=== PATIENT | female | born 1995 | race Caucasian/White ===

== ENCOUNTER 2017-01-03 02:17 | Emergency (ER) | payer SELFPAY ==
[~2017-01-03] VITALS: Ht 162.6 cm; Wt 52.0 kg
[2017-01-03 02:25] VITALS: BP 123/68; PULSE 85; RESP 16; TEMP 98.7; O2SAT 100
[2017-01-03] MEDS ORDERED: LORazepam 2 MG/ML VIAL ONE (02:49)
--- NOTE | 2017-01-03 03:05 | PD ---
HPI Chief Complaint: Seizure Time Seen by Provider: 02:26 Travel History International Travel<30 days: No Contact w/Intl Traveler<30days: No Traveled to known affect area: No History of Present Illness HPI Patient is a 21 year old female who is brought in by EMS possible staring seizure at home called 911. He reports that she has had tonic seizures in [facility] but tonight was a more of a staring episode and that she did not respond when he called her repeatedly.. Patient is awake and alert when I talked to her . Pt is staring but answering questions about her antiseizure meds, and that they were stopped in February and that she has had EEG that were unremarkable .. having had a normal EEG. She looks staring but no tonic-clonic activity,she does not lack comprehension as I speak to her , she responds slowly but appropriately, her vitals are normal heart rate is 90 BPM blood pressure is 123/60. No sign of active seizing. is in route to Hospital .. PFSH Past Medical History Diminished Hearing: No Seizures: Yes Tetanus Vaccination: > 5 Years ?: Not Past Surgical History Surgical History: No Previous Surgery Section: Yes (ONE) Social History Alcohol Use: No Tobacco Use: No Substance Use: No Allergies-Medications (Allergen,Severity, Reaction): Coded Allergies: No Known Allergies (Verified Allergy, Unknown, 01/03/17) Reported Meds & Prescriptions Reported Meds & Active Scripts Active Ativan (Lorazepam) 0.5 Mg Tab 0.5 Mg PO Q6H PRN Calcium 600+D Plus Minerals (Calcium Carbonate-Vitamin D W/Minerals) 600-400 Mg- Unit Tab 1 Tab PO BID 30 Days Review of Systems ROS Limitations: Other: (slow mentation but not postictal , answer history questions but not able to provide details of current night s event) Except as stated in HPI: all other systems reviewed are Neg Physical Exam Narrative GENERAL: Awake alert but staring answering slowly SKIN: Warm and dry. HEAD: Atraumatic. Normocephalic. EYES: Pupils equal and round. No scleral icterus. No injection or drainage. ENT: No nasal bleeding or discharge. Mucous membranes pink and moist. NECK: Trachea midline. No JVD. CARDIOVASCULAR: Regular rate and rhythm. BP 123/60 heart rate 90 RESPIRATORY: No accessory muscle use. Clear to auscultation. Breath sounds equal bilaterally. GASTROINTESTINAL: Abdomen soft, non-tender, nondistended. Hepatic and splenic margins not palpable. MUSCULOSKELETAL: Extremities without clubbing, cyanosis, or edema. No obvious deformities. NEUROLOGICAL: Awake and alert. No obvious focal deficits. No signs of postictal phase PSYCHIATRIC: Staring ahead however she is awake and alert and responding appropriately Patient is staring but answers my questions when I first come into the room there is no tonic-clonic activity her blood pressure is 123/60 heart rate 90 RE_EXAM pt now fully alert . beside. Calcium was 6.9 ,, I felt with risk of seizure IV replacement indicated CaGluc 1 gram over 1 hr given with close to normilization 8.1 safe for discharge with PO calcium replacment Data Data Last Documented VS Vital Signs Date Time Temp Pulse Resp B/P (MAP) Pulse Ox O2 Delivery O2 Flow Rate FiO2 01/03/17 07:18 97.8 78 16 120/76 (91) 99 01/03/17 05:10 Room Air Orders Orders Complete Blood Count With Diff (01/03/17 02:43) Comprehensive Metabolic Panel (01/03/17 02:43) Creatine Kinase (Cpk) (01/03/17 02:43) Lorazepam Inj (Ativan Inj) (01/03/17 02:49) Calcium Gluconate Inj (Calcium Gluconate (01/03/17 04:15) Magnesium (Mg) (01/03/17 05:32) Phosphorus (Po4) (01/03/17 05:32) Comprehensive Metabolic Panel (01/03/17 06:29) Ed Discharge Order (01/03/17 07:05) Electrocardiogram (01/03/17 02:36) Labs Laboratory Tests Test 01/03/17 02:50 01/03/17 06:31 White Blood Count 8.8 TH/MM3 Red Blood Count 4.21 MIL/MM3 Hemoglobin 11.7 GM/DL Hematocrit 34.7 % Mean Corpuscular Volume 82.5 FL Mean Corpuscular Hemoglobin 27.8 PG Mean Corpuscular Hemoglobin Concent 33.7 % Red Cell Distribution Width 13.7 % Platelet Count 186 TH/MM3 Mean Platelet Volume 8.0 FL Neutrophils (%) (Auto) 65.2 % Lymphocytes (%) (Auto) 27.5 % Monocytes (%) (Auto) 5.8 % Eosinophils (%) (Auto) 1.2 % Basophils (%) (Auto) 0.3 % Neutrophils # (Auto) 5.7 TH/MM3 Lymphocytes # (Auto) 2.4 TH/MM3 Monocytes # (Auto) 0.5 TH/MM3 Eosinophils # (Auto) 0.1 TH/MM3 Basophils # (Auto) 0.0 TH/MM3 CBC Comment DIFF FINAL Differential Comment Blood Urea Nitrogen 7 MG/DL 6 MG/DL Creatinine 0.44 MG/DL 0.58 MG/DL Random Glucose 83 MG/DL 95 MG/DL Total Protein 6.3 GM/DL 6.7 GM/DL Albumin 3.3 GM/DL 3.5 GM/DL Calcium Level 6.9 MG/DL 8.1 MG/DL Alkaline Phosphatase 64 U/L 69 U/L Aspartate Amino Transf (AST/SGOT) 12 U/L 10 U/L Alanine Aminotransferase (ALT/SGPT) 14 U/L 16 U/L Total Bilirubin 0.2 MG/DL 0.3 MG/DL Sodium Level 144 MEQ/L 143 MEQ/L Potassium Level 3.0 MEQ/L 3.9 MEQ/L Chloride Level 114 MEQ/L 111 MEQ/L Carbon Dioxide Level 23.2 MEQ/L 24.7 MEQ/L Anion Gap 7 MEQ/L 7 MEQ/L Estimat Glomerular Filtration Rate 177 ML/MIN 129 ML/MIN Protein Corrected Calcium 7.3 MG/DL Phosphorus Level 2.1 MG/DL Magnesium Level 1.8 MG/DL Total Creatine Kinase 100 U/L [facility] Medical Decision Making Medical Screen Exam Complete: Yes Emergency Medical Condition: Yes Differential Diagnosis seizure tonic clonic and post ictal or absence seizure with vague staring episodes vs pseudoseizure . Narrative Course pt was cognizant the entire time in ER , she said she was having a seizure to nurse , when I am called bedside she is awake staring and answering my questions slowly but full comprehension. Pt no given any IV benzos as no indication, after labs return with Hypocalcemia I replace IV with Ca Gluconate if she has Seizure Hx and calcium could effect brain function, 1 gr IVPB over 1 hr given pt is fully alert and when her is bedside and they tell me of their recent immigration from [facility] with child and no health care for her seizure, confirms that EEGs were normal in [facility] , and tegretol had been discontinued as no clear dx of Seizure . Diagnosis Primary Impression: Hypocalcemia Additional Impression: Seizure disorder Patient Instructions: General Instructions, Hypocalcemia (ED) Scripts Lorazepam (Ativan) 0.5 Mg Tab 0.5 MG PO Q6H Y for ANXIETY AND/OR AGITATION, #10 TAB 0 Refills Prov: Dario Reid MD 01/03/17 Calcium Carbonate-Vitamin D W/Minerals (Calcium 600+D Plus Minerals) 600-400 Mg- Unit Tab 1 TAB PO BID for Nutritional Supplement for 30 Days, #60 TAB 0 Refills Prov: Dario Reid MD 01/03/17 Disposition: 01 DISCHARGE HOME Condition: Good Dario Reid MD Jan 03, 2017 03:05
[2017-01-03 03:11] LABS: AUTOMATED NEUTROPHIL # 5.7 TH/MM3 (1.8-7.7); BASOPHIL % 0.3 % (0.0-2.0); EOSINOPHIL # 0.1 TH/MM3 (0-0.4); EOSINOPHIL % 1.2 % (0.0-4.0); HEMATOCRIT 34.7 % (35.0-46.0); HEMO FLAGS DIFF FINAL; LYMPH % 27.5 % (9.0-44.0); LYMPHOCYTE # 2.4 TH/MM3 (1.0-4.8); MEAN CELL VOLUME 82.5 FL (80.0-100.0); MEAN CORPUSCULAR HEMOGLOBIN 27.8 PG (27.0-34.0); MEAN CORPUSCULAR HGB CONC 33.7 % (32.0-36.0); MONO % 5.8 % (0.0-8.0); NEUT % 65.2 % (16.0-70.0); PLATELET COUNT 186 TH/MM3 (150-450); RED BLOOD COUNT 4.21 MIL/MM3 (4.00-5.30); RED CELL DISTRIBUTION WIDTH 13.7 % (11.6-17.2); WHITE BLOOD COUNT 8.8 TH/MM3 (4.0-11.0)
[2017-01-03 03:39] LABS: BICARBONATE 23.2 MEQ/L (21.0-32.0); TOTAL BILIRUBIN ADULT 0.2 MG/DL (0.2-1.0)
[2017-01-03 03:45] LABS: CALCIUM-PROTEIN CORRECTED 7.3 MG/DL (8.5-10.1)
[2017-01-03] MEDS ORDERED: CALCIUM GLUCONATE INJ 1 GM in DEXTROSE 5% IN WATER 100ML INJ 100 ML IV ONE ×2 (04:15)
[2017-01-03 05:10] VITALS: BP 102/59; PULSE 90; RESP 20; O2SAT 100
[2017-01-03 06:24] LABS: MAGNESIUM 1.8 MG/DL (1.5-2.5)
[2017-01-03] MEDS ORDERED: LORA-392 PO (07:04)
[2017-01-03] MEDS ORDERED: CALCTAB33 PO (07:04)
[2017-01-03 07:18] VITALS: BP 120/76; TEMP 97.8
[2017-01-03 07:38] LABS: ALKALINE PHOSPHATASE 69 U/L (45-117); ALT (GPT) 16 U/L (10-53); ANION GAP 7 MEQ/L (5-15); AST (GOT) 10 U/L (15-37); BICARBONATE 24.7 MEQ/L (21.0-32.0); BLOOD UREA NITROGEN 6 MG/DL (7-18); CHLORIDE 111 MEQ/L (98-107); GLOMERULAR FILTRATION RATE 129 ML/MIN (>89); POTASSIUM 3.9 MEQ/L (3.5-5.1); SODIUM (NA) 143 MEQ/L (136-145); TOTAL BILIRUBIN ADULT 0.3 MG/DL (0.2-1.0)
--- NOTE | 2017-01-03 15:47 | EKG ---
Date Performed: 01/03/2017 Time Performed: 02:36:33 PTAGE: 21 years EKG: Sinus rhythm NONSPECIFIC T-WAVE ABNORMALITY BORDERLINE ECG NO PREVIOUS TRACING DOCTOR: Mars Rodriguez Interpretating Date/Time 01/03/2017 15:45:35
== END 2017-01-03 07:18 | disposition home or self-care (01) ==
LOC: NEPC 02:17
DX: E83.51 Hypocalcemia (principal); G40.909 Epilepsy, unspecified, not intractable, without status epilepticus; R94.31 Abnormal electrocardiogram [ECG] [EKG]
CPT/HCPCS: 80053; 82550; 83735; 84100; 85025; 93005; 96365; 99284; J0610; J2060